=== PATIENT | female | born 1960 | race Caucasian/White ===

== ENCOUNTER 2016-10-26 06:11 | Inpatient (IN) | payer BC ==
[2016-10-19 09:44] LABS: BASOPHILS 0.2 %; BASOPHILS ABSOLUTE 0.03 10/3/uL (0.0-0.16); EOSINOPHILS 0.8 %; EOSINOPHILS ABSOLUTE 0.11 10/3/uL (0.0-0.53); HEMATOCRIT 45.3 % (36.0-48.0); HEMOGLOBIN 15.2 g/dL (12.0-16.0); IMMATURE GRANULOCYTES 0.3 %; IMMATURE GRANULOCYTES ABSOLUTE 0.04 10/3/uL (0.0-0.11); LYMPHOCYTES 18.8 %; LYMPHOCYTES ABSOLUTE 2.55 10/3/uL (0.67-4.30); MEAN CORPUS HGB CONC 33.6 g/dL (32.0-36.0); MEAN CORPUSCULAR HEMOGLOB 29.8 pg (26.0-34.0); MEAN CORPUSCULAR VOLUME 88.8 fL (80-100); MEAN PLATELET VOLUME 9.3 fL (9.2-13.0); MONOCYTES 4.5 %; MONOCYTES ABSOLUTE 0.61 10/3/uL (0.21-1.20); NEUTROPHILS 75.4 %; NEUTROPHILS ABSOLUTE 10.23 10/3/uL (2.02-8.40); PLATELET COUNT 259 10/3/uL (150-400); RBC DISTRIBUTION WIDTH 13.5 % (12.0-16.0)
[2016-10-19 09:45] LABS: MANUAL DIFF NO %; WHITE BLOOD CELLS 13.6 10/3/uL (4.5-10.5)
[2016-10-19 09:56] LABS: INTERNATIONAL NORMAL RATI 1.1 UNITS (-); PARTIAL THROMBO TIME 30.8 SEC (22.5-37.2); PROTIME (NOT ORD) 14.3 SEC (12.0-14.5)
[2016-10-19 10:24] LABS: ALKALINE PHOSPHATASE 129 U/L (45-117); BUN (BLOOD UREA NITROGEN) 8 MG/DL (6-23); CALCIUM, SERUM 9.4 MG/DL (8.5-10.4); CHLORIDE, SERUM 102 MMOL/L (96-112); CHOL/HDL RATIO(NOT ORDER) 3.1 (0-5); CHOLESTEROL 174 MG/DL (< 200); CO2 (CARBON DIOXIDE) 28 MMOL/L (24-34); CREATININE 0.74 MG/DL (0.55-1.02); GFR AFRICAN AMERICAN 106 ML/MIN (>=60); GFR NON AFRICAN AMERICAN 92 ML/MIN (>=60); GLOBULIN 3.9 G/DL (2.5-4.1); GLUCOSE, SERUM 125 MG/DL (60-99); HDL CHOLESTEROL 56 MG/DL (> 49); IRON, SERUM 29 MCG/DL (35-150); LDL CHOLESTEROL 86 MG/DL (< 130); NON-HDL CHOLESTEROL 118 MG/DL (< 160); POTASSIUM, SERUM 4.6 MMOL/L (3.5-5.3); SGOT(AST) 23 U/L (5-40); SGPT(ALT) 37 U/L (5-65); SODIUM, SERUM 138 MMOL/L (135-148); TOTAL PROTEIN 7.9 G/DL (6.0-8.5); TRIGLYCERIDE 160 MG/DL (< 150)
[2016-10-19 11:18] LABS: WBC (NOT ORDERED) (RFLEX) 1 (0-5)
[2016-10-19 11:34] LABS: ASCORBIC ACID (UR NOT ORDER) NEGATIVE (NEG); BILIRUBIN, URINE NEGATIVE (NEG); KETONE, URINE TRACE MG/DL (NEG); LEUKOCYTE ESTERASE(NOT OR NEG (NEG)
--- NOTE | ~2016-10-26 | OP ---
Record Of Operation [facility] [address] [place]. [address] NAME: HETAL PARR : 62 STATUS : ADM IN PAT#: [id number] AGE: 55 ADM/REG DATE : 10/26/16 MR#: [id number] REPORT SERV DATE: 10/26/16 DICTATED BY: BHAVIK MCCLENDON DATE: 10/26/16 REPORT STATUS : Draft TRANSCRIBED BY: MODJeffy DATE: 10/26/16 DATE OF PROCEDURE: PREOPERATIVE DIAGNOSIS: Morbid obesity. POSTOPERATIVE DIAGNOSIS: Morbid obesity. OPERATION: Laparoscopic sleeve gastrectomy and extensive lysis of adhesions. SURGEON: Bhavik Mcclendon M.D. ANESTHESIA: General endotracheal. COMPLICATIONS: None. INDICATION OF THE OPERATION: This is a 55-year-old white female with morbid obesity with a BMI of 67.6 and a weight of 375.4 pounds and associated hypertension, dyslipidemia, arthropathy. She is status post an upper abdominal ventral hernia repair with mesh and incidental finding of large amount of adhesions. DESCRIPTION OF OPERATION: The patient was taken to the operating room, and after adequate anesthesia, was prepped and draped in the usual sterile manner. First, we accessed the abdomen through the left upper quadrant with a trocar, insufflated the abdominal cavity. There were extensive adhesions that will make it very difficult to put the trocars in place, so we started taking all the adhesions down. We had to put an additional trocar in the more lower aspect on the left side to stop pushing the adhesions slowly and tediously with the Harmonic scalpel. We did see where the mesh was located, then we tried to figure out a place where we could put the larger trocar, so when we removed the stomach, it did not come out of the mesh, so we ended up putting that 15 mm trocar more on the left side away from the mesh. We had to put the trocars through the mesh as it was an extensive mesh and then took down all the adhesions. We spent about 30-45 minutes with the adhesions until we cleared all that area. Eventually, we put the liver retractor. She had a large fatty liver with difficulty also for exposure, but we were able to retract the liver, exposed the stomach, and started dissecting the upper portion of the stomach. We did remove some of the epiphrenic fat pad on top of the stomach using the Harmonic scalpel and then entered the lesser sac at the level of the lower body of the stomach next to the greater curvature and started dissecting the greater curvature with the Harmonic scalpel all the way up to the fundus and mobilized the fundus all the way up to the left marguerite and mobilized all the posterior adhesions until the left marguerite was completely mobilized. Stomach was completely dissected posteriorly and then continued dissection in the greater curvature all the way down to the distal antrum to about 3 cm or so from the pylorus. Then, we introduced a 36- Gambian blunt-tip bougie suction catheter all the way down to the distal antrum, put it on suction to delineate well the stomach, and then started stapling about 5 cm from the pylorus using the [employer] automatic stapler with a green load and stapler reinforcement using the SeamGuard. We used a total of 5 stapling from the bottom to the top. Staple line looked intact. There was no evidence of bleeding or oozing. Then, we tacked the greater omentum Record Of [address] [address] NAME: HETAL PARR : 62 STATUS : ADM IN PAT#: [id number] AGE: 55 ADM/REG DATE : 10/26/16 MR#: [id number] REPORT SERV DATE: 10/26/16 DICTATED BY: BHAVIK MCCLENDON DATE: 10/26/16 REPORT STATUS : Draft TRANSCRIBED BY: SUZIE DATE: 10/26/16 into the staple line at the top middle lower portion to stabilize the orientation of the sleeve pouch. Then removed the calibration tube and we put it in and out to verify there was no evidence of obstructive problems and then removed the stomach specimen through the 15 which in this case we placed it more on the lateral aspect of the left side to stay away from the mesh. Stomach specimen came out with no problems and then we closed that fascia defect with an EFX Fascial Closure device using a Vicryl #0 and then removed all the trocars and liver retractor under direct visualization and closed all the incisions with subcuticular Monocryl 4-0. The patient tolerated the procedure well and did not have any problems. OSMAR Bhavik Bear M.D. / [id number] CC: Alice Duke M.D.
[~2016-10-26 06:11] MED LIST: LOTE40 PO; MULTIPLE VIT PO; VERELAN240 MG PO; ZOCOR10 PO
[2016-10-26 06:31] LABS: BASOPHILS 0.5 %; BASOPHILS ABSOLUTE 0.04 10/3/uL (0.0-0.16); EOSINOPHILS 1.1 %; EOSINOPHILS ABSOLUTE 0.09 10/3/uL (0.0-0.53); HEMATOCRIT 45.9 % (36.0-48.0); HEMOGLOBIN 15.4 g/dL (12.0-16.0); IMMATURE GRANULOCYTES 0.2 %; IMMATURE GRANULOCYTES ABSOLUTE 0.02 10/3/uL (0.0-0.11); LYMPHOCYTES 32.7 %; LYMPHOCYTES ABSOLUTE 2.66 10/3/uL (0.67-4.30); MANUAL DIFF NO %; MEAN CORPUS HGB CONC 33.6 g/dL (32.0-36.0); MEAN CORPUSCULAR HEMOGLOB 30.1 pg (26.0-34.0); MEAN CORPUSCULAR VOLUME 89.8 fL (80-100); MEAN PLATELET VOLUME 8.9 fL (9.2-13.0); MONOCYTES 6.6 %; MONOCYTES ABSOLUTE 0.54 10/3/uL (0.21-1.20); NEUTROPHILS 58.9 %; NEUTROPHILS ABSOLUTE 4.78 10/3/uL (2.02-8.40); PLATELET COUNT 285 10/3/uL (150-400); RBC DISTRIBUTION WIDTH 13.3 % (12.0-16.0); RED CELL COUNT 5.11 10/6/uL (4.0-5.6); WHITE BLOOD CELLS 8.1 10/3/uL (4.5-10.5)
== END 2016-10-27 15:12 | disposition home or self-care (01) | DRG 621 ==
LOC: SDC/OF 06:11 → PACU 10:52 → 2SO 12:03
PROVIDERS: Surgery
PROC: 0DB64Z3 Excision of Stomach, Percutaneous Endoscopic Approach, Vertical (ICD-10-PCS; 2016-10-26)
PROC: 0DN63ZZ Release Stomach, Percutaneous Approach (ICD-10-PCS; principal; 2016-10-26 07:45)
DX: E66.01 Morbid (severe) obesity due to excess calories (principal); I10 Essential (primary) hypertension; Z68.44 Body mass index [BMI] 60.0-69.9, adult; E78.00 Pure hypercholesterolemia, unspecified; G47.33 Obstructive sleep apnea (adult) (pediatric); M19.90 Unspecified osteoarthritis, unspecified site; D64.9 Anemia, unspecified; K66.0 Peritoneal adhesions (postprocedural) (postinfection); Z98.890 Other specified postprocedural states
CPT/HCPCS: 74246; 80053; 80061; 81001; 82607; 82746; 82962; 83036; 83540; 84443; 85025; 85610; 85730; 88307; 93005; A9270-GY; C9113; J0690; J2250; J2405; J2710; J2795; J3010